=== PATIENT | male | born 1960 | race African-American/Black ===

== ENCOUNTER 2019-05-26 16:53 | Emergency (ER) | payer OTHER ==
[2019-05-26 17:11] VITALS: BMI 27.2
--- NOTE | 2019-05-26 17:11 | PDOC ---
History of Present Illness - General Chief Complaint: Injury Stated Complaint: LEFT KNEE INJURY - History of Present Illness Initial Comments: 05/27/19 10:16 58M PMH HTN, ?DM c/o severe non-radiating left knee pain after slip and fall today. Pt works at [employer], slipped on leaves, landed on left knee. Denies head strike and LOC. Pt was able to pick himself up and limp. Pain acutely worsened when pt tried to get up from sitting position. Denies numbness, tingling, weakness. Denies f/c/n/v/cp/sob. NKDA PCP - Dr. Mcgee Denies tobacco, etoh, drugs Past History - Past Medical History Allergies/Adverse Reactions: Allergies Allergy/AdvReac Type Severity Reaction Status Date / Time No Known Allergies Allergy Verified 05/11/17 17:00 Home Medications: Ambulatory Orders Ibuprofen [Motrin -] 600 mg PO QID #28 tablet 05/11/17 Acetaminophen [Tylenol Extra Strength] 1,000 mg PO Q6H PRN #60 tablet 05/26/19 Ibuprofen [Motrin -] 600 mg PO Q6H PRN #60 tablet 05/26/19 Oxycodone HCl/Acetaminophen [Percocet 5-325 mg Tablet] 1 tab PO BID PRN #4 tablet MDD 2 tabs 05/26/19 COPD: No HTN: Yes (border line) - Psycho Social/Smoking Cessation Hx Smoking History: Never smoked Have you smoked in the past 12 months: No Hx Alcohol Use: No Drug/Substance Use Hx: No Substance Use Type: None Review of Systems - Review of Systems Comments:: 05/27/19 10:16 CONSTITUTIONAL: Denies F / C HEENT: Denies headache, lightheadedness, dizziness, changes in vision / hearing RESP: Denies SOB CARD: Denies chest pain GI: Denies N / V / D, abdominal pain : Denies dysuria SKIN: Denies rashes NEURO: Denies numbness, tingling, weakness MSK: Denies back pain, pelvic pain *Physical Exam - Vital Signs Last Vital Signs Temp Pulse Resp BP Pulse Ox 98.1 F 85 20 138/92 98 05/26/19 17:05 05/26/19 17:05 05/26/19 17:05 05/26/19 17:05 05/26/19 17:05 - Physical Exam 05/27/19 10:16 GEN: Well appearing, NAD, comfortable. AAOx3 HEENT: NC/AT, CN II-XII grossly intact, EOMI, PERRLA. No facial asymmetry. Normal voice. Supple neck, FROM, neg TTP midline. LUNG: CTAB, no wheezes, crackles, rales, rhonchi. GI: soft, ndnt, +BS, no guarding, no rebound. No masses. EXTREMITIES: warm well perfused extremities; 2+ pulses. Soft tissue swelling of the left knee; julius. superior aspect. exquiste TTP of suprapatellar and medial knee. +effusion of the superior-medial knee. No bony deformities. No streaking. There is no pelvic, thigh, calf, ankle, or foot pain. SKIN: warm, dry, normal turgor PSYCH: normal mood and affect NEURO: Moving all extremities well. FROM UE, 5/5 UE strength b/l. Limited ROM and strength testing of the LLE 2/2 pain. Able to wiggle left toes and range left foot/ankle. FROM and strength of the RLE. Sensation symmetric and intact throughout. BACK: No obvious deformities, no step offs, no midline TTP. No signs of trauma. No pelvic instability. ED Treatment Course - LABORATORY CBC & Chemistry Diagram: 05/26/19 18:00 05/26/19 18:00 Medical Decision Making - Medical Decision Making 05/26/19 17:45 58M c/o severe left knee pain 2/2 traumatic slip and fall w/o LOC or headstrike. effusion, swelling, and TTP of the left knee. considering patellar fx, ligamental injury, sprain, strain - CBC, CMP, coags - Morphine - Knee films 05/26/19 18:49 XR films reviewed: no obvious fracture; uncharacterizable abnormality CT LLE to further characterize Will sign out to PM team Will need ortho f/u Dispo pending Discharge - Discharge Information Problems reviewed: Yes Clinical Impression/Diagnosis: Knee pain Qualifiers: Chronicity: acute Laterality: left Qualified Code(s): M25.562 - Pain in left knee Fall Qualifiers: Encounter type: initial encounter Qualified Code(s): W19.XXXA - Unspecified fall, initial encounter Condition: Improved Disposition: HOME - Additional Discharge Information Prescriptions: Acetaminophen [Tylenol Extra Strength] 1,000 mg PO Q6H PRN #60 tablet PRN Reason: Pain Ibuprofen [Motrin -] 600 mg PO Q6H PRN #60 tablet PRN Reason: Pain Oxycodone HCl/Acetaminophen [Percocet 5-325 mg Tablet] 1 tab PO BID PRN #4 tablet MDD 2 tabs PRN Reason: Severe Pain - Follow up/Referral Referrals: Doreen Sweet [Primary Care Provider] - Richard Yates MD [Staff Physician] - Leroy Berg MD [Staff Physician] - - Patient Discharge Instructions Patient Printed Discharge Instructions: DI for Knee Pain, How to Use a Knee Immobilizer Additional Instructions: You came into the emergency department for left knee pain. Your CT scan did not show acute pathology. Prescriptions sent to your pharmacy. Take as instructed. You can also place a bag of ice over a cloth on the knee to help with pain and swelling (twenty minutes on, twenty minutes off, repeat as needed). Weight bearing as tolerated. We have referred you to an orthopedist if your pain does not start to improve after two days. Call and make an appointment. Immediate medical attention is required if you experience: any focal numbness or weakness, coldness in your limb, or any new or concerning symptoms. If you think you are having an emergency, call for emergency medical services or present to the emergency department right away. - Post Discharge Activity
[2019-05-26] MEDS ORDERED: morphine CARPU-JECT 4 MG/1 ML DISP.SYRIN IVPUSH ONE (17:46)
[2019-05-26] MEDS ORDERED: morphine SULFATE 4 MG/ML VIAL ONE (17:49)
--- NOTE | 2019-05-26 17:52 | PDOC ---
Documentation entered by Martha Shore SCRIBE, acting as scribe for Christiana Chavira MD. Christiana Chavira MD: This documentation has been prepared by the henryibe, Martha Shore SCRIBE, under my direction and personally reviewed by me in its entirety. I confirm that the documentation accurately reflects all work, treatment, procedures, and medical decision making performed by me. Attending Attestation - Resident Resident Name: Richard Hsu - ED Attending Attestation I have performed the following: I have examined & evaluated the patient, The case was reviewed & discussed with the resident, I agree w/resident's findings & plan, Exceptions are as noted - HPI HPI: 05/26/19 17:41 This 58-year-old male slipped on some leaves at work and reports that his left knee went backwards and that he fell He has no ankle or thigh pain on the left leg but his knee is slightly swollen and tender - Physicial Exam PE: 05/26/19 17:51 Well-nourished well-developed 58-year-old male presents with left knee pain status post slipping on leaves and falling Head normocephalic atraumatic Neck no midline cervical vertebral tenderness Lungs are clear to auscultation CVS regular rate and rhythm S1-S2 Abdomen nontender Skin warm and dry Extremity left knee slightly swollen and tender, ankle and foot is nontender and his thigh and hip are not tender Neuro alert and oriented x3 - Medical Decision Making 05/26/19 17:52 Pain medicines and radiograph ordered
[2019-05-26 18:17] LABS: BASO % 0.4 % (0-2.0); EOS % 0.2 % (0-4.5); HEMATOCRIT 37.4 % (35.4-49); HEMOGLOBIN 12.2 GM/dL (11.7-16.9); LYMPH % 14.1 % (8-40); MCH 29.8 pg (25.7-33.7); MCHC 32.7 g/dl (32.0-35.9); MEAN CELL VOLUME 91.3 fl (80-96); MEAN PLT VOLUME 8.7 fl (7.5-11.1); MONO % 5.2 % (3.8-10.2); NEUT % 80.1 % (42.8-82.8); PLATELET COUNT 197 K/MM3 (134-434); RDW 13.3 % (11.9-15.9); WHITE BLOOD COUNT 9.1 K/mm3 (4.0-10.0)
[2019-05-26 18:27] LABS: INR 1.03 (0.83-1.09); PROTHROMBIN TIME (PATIENT) 12.2 SEC (9.7-13.0)
[2019-05-26 18:30] LABS: ACTIVATED PTT 29.3 SECONDS (25.2-36.5)
[2019-05-26 18:40] LABS: ALBUMIN 4.3 g/dl (3.4-5.0); BILIRUBIN,TOTAL 0.4 mg/dL (0.2-1); BLOOD UREA NITROGEN 18.7 mg/dL (7-18); CALCIUM 9.4 mg/dL (8.5-10.1); POTASSIUM 3.7 mmol/L (3.5-5.1); TOT PROT 7.5 g/dl (6.4-8.2)
--- NOTE | 2019-05-26 19:24 | PDOC ---
*Physical Exam - Vital Signs Last Vital Signs Temp Pulse Resp BP Pulse Ox 98.1 F 85 20 138/92 98 05/26/19 17:05 05/26/19 17:05 05/26/19 17:05 05/26/19 17:05 05/26/19 17:05 ED Treatment Course - LABORATORY CBC & Chemistry Diagram: 05/26/19 18:00 05/26/19 18:00 - ADDITIONAL ORDERS Additional order review: Laboratory Results 05/26/19 05/26/19 18:00 18:00 PT with INR 12.20 INR 1.03 PTT (Actin FS) 29.3 Sodium 141 Potassium 3.7 Chloride 106 Carbon Dioxide 27 Anion Gap 7 L BUN 18.7 H Creatinine 1.0 Est GFR (CKD-EPI)AfAm 94.39 Est GFR (CKD-EPI)NonAf 81.44 Random Glucose 148 H Calcium 9.4 Total Bilirubin 0.4 AST 18 ALT 23 Alkaline Phosphatase 79 Total Protein 7.5 Albumin 4.3 05/26/19 18:00 RBC 4.10 MCV 91.3 MCHC 32.7 RDW 13.3 MPV 8.7 Neutrophils % 80.1 Lymphocytes % 14.1 Monocytes % 5.2 Eosinophils % 0.2 Basophils % 0.4 - Medications Given in the ED: ED Medications Discontinued Medications Generic Name Dose Route Start Last Admin Trade Name Freq PRN Reason Stop Dose Admin Morphine Sulfate 4 mg 05/26/19 17:46 05/26/19 18:18 Morphine Injection - IVPUSH 05/26/19 17:47 4 mg ONCE ONE Administration Medical Decision Making - Medical Decision Making Patient signed out by Dr. Hsu 58yo M with PMH of HTN, ?DM complaining of L. knee pain after suffering a mechanical fall. Received morphine Pain is improved, now rated 5/[address] Pain control Will reassess 05/26/19 19:21 CT as read by radiology: " EXAM#: TYPE/EXAM: RESULT: [id number] CT/LOWER EXTREMITY CT W/O CONTR Left lower extremity CT without contrast Clinical information given: fall, pain Multiplanar imaging was performed. As requested exam coverage extends from the level of the mid left femur through the mid tibia. Comparative imaging of the contralateral leg was also obtained. Evaluation of the left lower extremity demonstrates no CT evidence of fracture. A small to moderate left-sided suprapatellar joint effusion is seen does not appear grossly hemorrhagic. Degenerative narrowing of the left medial femoral-tibial joint compartment is seen which appears moderate. No soft tissue hematoma is noted. If there is ongoing symptomatology MRI evaluation is suggested, nonemergent unless otherwise clinically indicated. IMPRESSION: As noted above. Reported By: Chao Mcneil MD 05/26/192051 " Placed in knee immobilizer Patient able to ambulate with cane Prescriptions for tylenol/motrin and 4 tablets of percocet sent to [facility] Orthopedics follow-up Return precautions Stable for discharge 05/26/19 22:46 Discharge - Discharge Information Problems reviewed: Yes Clinical Impression/Diagnosis: Knee pain Qualifiers: Chronicity: acute Laterality: left Qualified Code(s): M25.562 - Pain in left knee Fall Qualifiers: Encounter type: initial encounter Qualified Code(s): W19.XXXA - Unspecified fall, initial encounter Condition: Improved Disposition: HOME - Additional Discharge Information Prescriptions: Acetaminophen [Tylenol Extra Strength] 1,000 mg PO Q6H PRN #60 tablet PRN Reason: Pain Ibuprofen [Motrin -] 600 mg PO Q6H PRN #60 tablet PRN Reason: Pain Oxycodone HCl/Acetaminophen [Percocet 5-325 mg Tablet] 1 tab PO BID PRN #4 tablet MDD 2 tabs PRN Reason: Severe Pain - Follow up/Referral Referrals: Doreen Sweet [Primary Care Provider] - Richard Yates MD [Staff Physician] - Leroy Berg MD [Staff Physician] - - Patient Discharge Instructions Patient Printed Discharge Instructions: DI for Knee Pain, How to Use a Knee Immobilizer Additional Instructions: You came into the emergency department for left knee pain. Your CT scan did not show acute pathology. Prescriptions sent to your pharmacy. Take as instructed. You can also place a bag of ice over a cloth on the knee to help with pain and swelling (twenty minutes on, twenty minutes off, repeat as needed). Weight bearing as tolerated. We have referred you to an orthopedist if your pain does not start to improve after two days. Call and make an appointment. Immediate medical attention is required if you experience: any focal numbness or weakness, coldness in your limb, or any new or concerning symptoms. If you think you are having an emergency, call for emergency medical services or present to the emergency department right away. - Post Discharge Activity
[2019-05-26 22:05] VITALS: BP 135/80; PULSE 83; TEMP 97.9
== END 2019-05-26 22:08 | disposition home or self-care (01) ==
LOC: JER 16:53
PROC: 3E033NZ Introduction of Analgesics, Hypnotics, Sedatives into Peripheral Vein, Percutaneous Approach (ICD-10-PCS; principal; 2019-05-26)
DX: S89.82XA Other specified injuries of left lower leg, initial encounter (principal); M25.562 Pain in left knee; W01.0XXA Fall on same level from slipping, tripping and stumbling without subsequent striking against object, initial encounter; Y93.01 Activity, walking, marching and hiking; Y92.89 Other specified places as the place of occurrence of the external cause; Y99.0 Civilian activity done for income or pay
CPT/HCPCS: 36415; 73562-TC-LT-FY; 73700-TC-RT; 80053; 85025; 85610; 85730; 99284-25

== ENCOUNTER 2020-11-15 05:56 | Day surgery (SDC) | payer OTHER ==
[2020-11-08 09:41] VITALS: BMI 26.3
[2020-11-15] MEDS ORDERED: CELECOXIB 200 MG CAPSULE PO ONE (06:45)
[2020-11-15] MEDS ORDERED: BUPIVICAINE 0.25%/MORPH PF/KETOROLAC - 51ML DISP.SYRINGE IA ONE ×3 (06:45→09:10)
[2020-11-15] MEDS ORDERED: TRANEXAMIC ACID 1000 MG/10 ML VIAL IVPUSH ONE (06:45)
[2020-11-15] MEDS ORDERED: CEFAZOLIN 2 GM in DEXTROSE 5%-WATER - 50 ML IVPB ONE (06:45)
[2020-11-15] MEDS ORDERED: CELECOXIB 200 MG CAPSULE ONE (06:47)
[2020-11-15] MEDS ORDERED: ROPIVACAINE HCL 0.5% 30ML VIAL ONE (07:06)
[2020-11-15] MEDS ORDERED: MIDAZOLAM HCL 2 MG/2 ML SINGLE DOSE VIAL ONE (07:06)
[2020-11-15] MEDS ORDERED: THROMBIN (BOVINE) 5,000 UNIT VIAL TP ONE (07:15)
[2020-11-15] MEDS ORDERED: VANCOMYCIN 1,000 MG VIAL (RESTRICTED TO ID ONLY) ONE (07:15)
[2020-11-15] MEDS ORDERED: ceFAZolin SODIUM 1 GM VIAL ONE (07:15)
[2020-11-15] MEDS ORDERED: MAG HYDROX/AL HYDROX/SIMETH 30 ML UNIT-DOSE CUP PO PRN (07:51)
[2020-11-15] MEDS ORDERED: ONDANSETRON 4 MG/2 ML VIAL IVPUSH PRN (07:51)
[2020-11-15] MEDS ORDERED: PROPOFOL 20 ML ONE ×3 (07:55)
[2020-11-15] MEDS ORDERED: LACTATED RINGERS SOLUTION 1,000 ML IV SCH (08:00)
[2020-11-15] MEDS ORDERED: traMADol HCL 50 MG TABLET PO PRN (10:10)
[2020-11-15] MEDS: amLODIPine BESYLATE 10 MG TABLET (FP) PO SCH (11:18)
[2020-11-15] MEDS: PANTOPRAZOLE 40 MG TABLET PO SCH (11:18)
[2020-11-15] MEDS: SENNOSIDES/DOCUSATE COMBO (SENNA PLUS) TABLET (UD) PO SCH ×2 (11:18→21:07)
[2020-11-15] MEDS: LISINOPRIL 10 MG TABLET PO SCH (11:18)
[2020-11-15] MEDS: MULTIVITAMINS (DAILY MVI) TABLET (FP) PO SCH (11:19)
[2020-11-15] MEDS: ACETAMINOPHEN 325 MG TABLET (FP) PO SCH ×4 (12:07→23:31)
[2020-11-15] MEDS ORDERED: ACETAMINOPHEN 325 MG TABLET (FP) PO SCH (12:30)
[2020-11-15] MEDS: oxyCODONE HCL 5 MG TABLET PO PRN ×2 (17:17→23:30)
[2020-11-15] MEDS: metFORMIN HCL 500 MG TABLET (FP) PO SCH (17:20)
[2020-11-15] MEDS: CEFAZOLIN 2 GM/D5W 2 GM/50 ML ML IVPB SCH ×2 (17:22→18:15)
[2020-11-15] MEDS: oxyCODONE HCL 10 MG SUSTAINED ACTING TABLET PO SCH (21:07)
[2020-11-16] MEDS: CEFAZOLIN 2 GM/D5W 2 GM/50 ML ML IVPB SCH ×2 (01:57→09:45)
[2020-11-16] MEDS ORDERED: PT OWN MED DRAWER 7, Y5N ONE (06:02)
[2020-11-16] MEDS: ACETAMINOPHEN 325 MG TABLET (FP) PO SCH ×2 (06:47→13:43)
[2020-11-16] MEDS: oxyCODONE HCL 5 MG TABLET PO PRN (06:47)
[2020-11-16] MEDS: metFORMIN HCL 500 MG TABLET (FP) PO SCH (06:48)
[2020-11-16] MEDS ORDERED: ASPIRIN 325 MG TABLET PO SCH (08:00)
[2020-11-16] MEDS: MULTIVITAMINS (DAILY MVI) TABLET (FP) PO SCH (09:37)
[2020-11-16] MEDS: SENNOSIDES/DOCUSATE COMBO (SENNA PLUS) TABLET (UD) PO SCH (09:37)
[2020-11-16] MEDS: PANTOPRAZOLE 40 MG TABLET PO SCH (09:37)
[2020-11-16] MEDS: oxyCODONE HCL 10 MG SUSTAINED ACTING TABLET PO SCH (09:38)
[2020-11-16] MEDS: LISINOPRIL 10 MG TABLET PO SCH (09:45)
[2020-11-16] MEDS: amLODIPine BESYLATE 10 MG TABLET (FP) PO SCH (09:45)
[2020-11-16 14:06] VITALS: BP 118/72; PULSE 99; TEMP 98.8
== END 2020-11-16 16:16 | disposition home health service (06) ==
LOC: FASUSAT 05:56 → FM/S 11:05 → FASUSAT 11-16 16:16
PROVIDERS: ATTEND Orthopaedic Surgery
PROC: 8E0YXBZ Computer Assisted Procedure of Lower Extremity (ICD-10-PCS; 2020-11-15)
PROC: 8E0Y0CZ Robotic Assisted Procedure of Lower Extremity, Open Approach (ICD-10-PCS; 2020-11-15)
PROC: 0SRC0LA Replacement of Right Knee Joint with Medial Unicondylar Synthetic Substitute, Uncemented, Open Approach (ICD-10-PCS; principal; 2020-11-15 08:23)
DX: M17.11 Unilateral primary osteoarthritis, right knee (principal)
CPT/HCPCS: 20985; 27446; C1776; S2900; 73560-TC-RT-FY; 82962; 94760; 97010-GP; 97116-GP; 97162-GP